=== PATIENT | female | born 1975 | race Caucasian/White ===

== ENCOUNTER 2016-09-09 17:54 | Emergency (ER) | payer BC ==
--- NOTE | 2016-09-10 08:23 | ER ---
ADMIT: 09/09/2016 RM/LOC: ER [facility] MR#: [id number] [id number] [place], [place] [id number] SHAYY KAUR [address] [place] [address] Emergency Room Report SEX: F AGE: 40 : 1975 DATE: 09/09/2016 TIME: 1754 hours. PRIMARY CARE PHYSICIAN: Humza Please refer to my T-sheet for complete H and P. HISTORY OF PRESENT ILLNESS: Basically, the patient is a 40-year-old, who was at work. She works at [employer]. She started having some chest discomfort, substernal, started at 3 o'clock. She arrives at six o'clock in the ER. Said it was left-sided and it is kind of a numb feeling, she has had it before, it is worse when she moves. She has never had heart problems, it does not radiate. She denies any other complaints. She comes in for evaluation. PHYSICAL EXAMINATION: VITAL SIGNS: Stable. She is saturating 100%. HEENT: Grossly normal. LUNGS: Clear. HEART: Regular. CHEST: Chest wall, she has reproducible chest wall pain left anterior area. EXTREMITIES: No cyanosis, clubbing, or edema. SKIN: No rash. EMERGENCY DEPARTMENT COURSE: Chest x-ray, negative. EKG, sinus rhythm, rate 76, no changes. She was given Toradol 60 IM, had improvement, and ready for discharge. ASSESSMENT: 1. Atypical chest pain. 2. Myofascial chest wall pain. PLAN: Motrin 600 t.i.d. p.r.n., return if worse. Follow up with Dr. Ching. Ortiz Andrea MD/ taiwo JOB #: [id number] CC: Ortiz Andrea MD, Attending Physician Girish Ching, Family Physician
== END 2016-09-09 18:45 | disposition home or self-care (01) ==
LOC: ER 17:54
DX: R07.89 Other chest pain (principal); Z79.899 Other long term (current) drug therapy